=== PATIENT | male | born 1965 ===

== ENCOUNTER 2025-08-30 06:00 | Day surgery (SDC) | payer OTHER ==
[2025-08-27 13:00] VITALS: BP 125/75
[~2025-08-30] VITALS: Ht 170.2 cm; Wt 77.1 kg
[~2025-08-30 06:00] MED LIST: PROTONIX40 MG PO
[2025-08-30] MEDS ORDERED: CEFTRIAXONE SODIUM 2,000 MG VIAL ONE (06:10)
[2025-08-30] MEDS ORDERED: METRONIDAZOLE/SODIUM CHLORIDE 500 MG/100 ML PIGGYBACK IV ONE (06:10)
[2025-08-30] MEDS ORDERED: HEMOSTATIC MATRIX 1 KIT KIT TOP ONE (07:08)
[2025-08-30] MEDS ORDERED: BUPIVACAINE HCL/MPF 0.5% 30ML VIAL ONE (07:08)
[2025-08-30] MEDS ORDERED: POVIDONE-IODINE 118 ML BOTT TOP ONE (07:08)
[2025-08-30] MEDS ORDERED: DIBUCAINE 30 GM TUBE ONE (07:08)
[2025-08-30] MEDS ORDERED: LIDOCAINE HCL 1%/EPINEPHRINE 20ML VIAL IJ ONE (07:09)
[2025-08-30] MEDS ORDERED: TAMSULOSIN HCL 0.4 MG CAP PO ONE ×2 (10:00→10:54)
[2025-08-30] MEDS ORDERED: ONDANSETRON HCL 2 MG/ML VIAL ONE (10:13)
[2025-08-30] MEDS ORDERED: ONDANSETRON HCL 2 MG/ML VIAL IV ONE (10:20)
[2025-08-30] MEDS ORDERED: OXYCODONE HCL5 MG PO (10:42)
== END 2025-08-30 12:45 | disposition home or self-care (01) ==
LOC: CIR.AMB 06:00
PROVIDERS: ATTEND Surgery
DX: K64.2 Third degree hemorrhoids (principal); K64.4 Residual hemorrhoidal skin tags; K62.89 Other specified diseases of anus and rectum